=== PATIENT | female | born 1930 | race Caucasian/White ===

== ENCOUNTER 2017-04-15 12:38 | Outpatient (RCR) | payer MEDICARE, BC ==
[~2017-04-15 12:38] MED LIST: ACE3 PO; ACE325 PO; AMOX-559 PO; ASPI-1471 PO; AUG875 PO; BACDS PO; BP MED; CHOL10005 PO; CHOL100062 PO; CYCL-277 PO; CYCL7.5T21 PO; DOC100 PO; DOXY-179 PO; FURO-45 PO; GABA-547 PO; GUALA600 PO; LETPT PO; LEVO-85 PO; LOR5/325 PO; MAGN200T6 PO; MECL-111 PO; METR-160 PO; NITR-105 PO; OMEP-153 PO; OND4 PO; OXYGEN INH; OXYGENHOME INH; PAN20 PO; POTA-23 PO; PRO25 PO; REFLUX MED; SPIR25TA78 PO; [UNRECOGNIZED DRUG - CODE] PO; [UNRECOGNIZED DRUG - CODE] PO
[2017-04-15 12:53] VITALS: BP 98/78
[2017-04-15 13:05] LABS: PLATELET COUNT, AUTOMATED 219 K/uL (150-450)
== END 2017-04-22 09:52 | disposition home or self-care (01) ==
LOC: SPU 12:38
PROVIDERS: ATTEND Radiology Radiation Oncology
DX: Z85.3 Personal history of malignant neoplasm of breast (principal); K21.9 Gastro-esophageal reflux disease without esophagitis; I10 Essential (primary) hypertension; Z92.3 Personal history of irradiation
CPT/HCPCS: 36415; 85025; G0463; 82040; 82247; 82310; 82374; 82435; 82565; 82947; 84075; 84132; 84155; 84295; 84450; 84460; 84520; 99212

== ENCOUNTER → 2017-04-29 | Outpatient (CLI) | payer MEDICARE, BC ==
--- NOTE | 2017-04-30 10:27 | RADIOLOGY IMAGING REPORT ---
FACILITY: [facility] - [place] PATIENT NAME: LULY WANG : [id number] MR: [id number] V: [id number] EXAM DATE: [id number] ORDERING PHYSICIAN: SKYLAR JUAREZ TECHNOLOGIST: Adriana Quintanilla PROCEDURE: MAMMOGRAM SCREENING LEFT UNILATERAL WITH CAD ASSISTED INTERPRETATION & 3D TOMOSYNTHESIS COMPARISON: Prior mammograms 04/21/16, 04/20/15, 04/19/14, 04/18/13 INDICATIONS: screening FINDINGS: Small amount of fibroglandular tissue is seen throughout the Left breasts. The parenchymal pattern has remained stable allowing for difference in mammographic technique & patient positioning. There is no evidence of malignant appearing mass, malignant appearing calcifications or other secondary sign of malignancy in the Left breast. DIAGNOSTIC CATEGORY 2--BENIGN FINDING. RECOMMENDATIONS: ROUTINE MAMMOGRAM AND CLINICAL EVALUATION. IMPRESSION: BIRADS 2: Benign finding No significant abnormality is seen Dictated by: Evon Anna M.D. on 04/29/2017 at 15:12 Transcribed by: BRO on 04/29/2017 at 16:21 Approved by: Evon Anna M.D. on 04/30/2017 at 10:26 [facility]
== END ==
LOC: MAMO 02:03
PROVIDERS: ATTEND Nurse Practitioner Family
DX: Z12.31 Encounter for screening mammogram for malignant neoplasm of breast (principal)
CPT/HCPCS: 77063; 77067

== ENCOUNTER 2017-08-14 05:50 | Emergency (ER) | payer MEDICARE, BC ==
--- NOTE | 2017-08-14 06:03 | ER Report ---
History and Physical Time Seen By MD: 06:02 Hx. of Stated Complaint: LEFT ARM NUMBNESS SINCE YESTERDAY. FEELS WOBBLY, THIS IS NORMAL THOUGH (TOM WEEKS MD) HPI/ROS CHIEF COMPLAINT: left arm numbness HISTORY OF PRESENT ILLNESS: This is an 87 year old female. She had numbness starting yesterday afternoon at about 1600 hours. She first noted that it was numb and felt like she could not grab things well, but the problem grabbing seemed to go away when she would concentrate. She has had no other numbness in the other extremities, or feelings of weakness. She is always off balance, and no more so than usual. She does have a headache, and she does not get headaches very often. She denies any new problems with vision, but has chronic macular degeneration. She denies fevers or chills. She has not had trouble swallowing or speaking. She has not noted any confusion. She has been getting muscle cramps in her legs, but this is common for her and not more frequently now. She has no chest pain, no shortness of breath. No problems with dysuria. She does go to the bathroom frequently, but that has not changed in the last few days. She has not been having any problems with bowels. She has no abdominal pain or nausea. No history of strokes. REVIEW OF SYSTEMS: As above. (TOM WEEKS MD) Allergies: Coded Allergies: Antihistamines - Alkylamine (Verified Allergy, Unknown, 08/14/17) "Antihistamines give me migraines" Home Meds Active Scripts Letrozole (FEMARA) 2.5 Mg Tab, 1 TAB PO DAILY, #90 TAB 3 Refills Prov:DAISY BRANHAM MD 07/22/17 Magnesium (MAGNESIUM) 200 Mg Tablet, 200 MG PO QDAY, #30 TAB Prov:DAISY BRANHAM MD 08/27/15 Aspirin (ASPIR 81) 81 Mg Tablet.dr, 81 MG PO QDAY, #30 TAB Prov:DAISY BRANHAM MD 08/23/15 Cholecalciferol (Vitamin D3) (VITAMIN D3) 1,000 Unit Tablet, 1000 TAB PO DAILY, #100 TAB 4 Refills Prov:JESUS GARCIA MD 04/18/14 Reported Medications Oxygen (OXYGEN) Inha, 2 L INH, L 10/26/14 Reviewed Nurses Notes: Yes (TOM WEEKS MD) Hx Smoking: Yes Smoking Status: Former Smoker Hx Substance Use Disorder: No Hx Alcohol Use: No (TOM WEEKS MD) Constitutional Vital Sign - Last 24 Hours 08/14/17 08/14/17 08/14/17 08/14/17 05:50 05:50 05:52 06:00 Temp 98.2 Pulse 98 Resp 18 B/P (MAP) 129/97 129/97 (108) 142/77 (98) Pulse Ox 96 O2 Delivery Nasal Cannula O2 Flow Rate 2.0 08/14/17 08/14/17 08/14/17 08/14/17 06:05 06:20 06:35 06:50 Pulse 94 94 89 Resp 16 20 28 Pulse Ox 95 08/14/17 08/14/17 08/14/17 08/14/17 07:00 07:05 07:30 08:22 Pulse 87 87 Resp 23 20 B/P (MAP) 102/57 (72) 128/75 (92) 08/14/17 08/14/17 08/14/17 08:30 08:35 08:40 Pulse 81 85 B/P (MAP) 136/113 (121) Pulse Ox 97 97 (JOSELINE DAIGLE MD) Physical Exam General Appearance: The patient is alert. No acute distress. Non-toxic in appearance. Eyes: Pupils are equal, round. Reactive to light. No pallor, injection or icterus. Extraocular movements are intact. No nystagmus. Visual taylor are equal by confrontation. ENT: Mucous membranes are moist. Normal oral mucosa. Posterior oropharynx is normal. Neck: Supple and non tender. No lymphadenopathy. Respiratory: Breathing easily and unlabored. Lungs are clear to auscultation. Cardiovascular: Regular rate and rhythm. No murmurs, gallops or rubs. Normal capillary refill. Trace edema bilateral ankles. No carotid bruits. Gastrointestinal: Abdomen is soft and non tender. Nondistended. Normal active bowel sounds. Neurological: Alert and oriented x3. Cranial nerve exam with eye exam as noted above. Normal facial sensation and motor function without droop or loss of nasolabial fold. Midline tongue with symmetric palate elevation. Normal shoulder shrug. Motor function without drift but the left arm is weaker throughout when testing strength in both arms at the same time. She has good strength when she can just focus on the left arm alone. The lower extremities have normal motor function. Sensory function is decreased throughout the left arm to pin prick and light touch and normal in the right arm. Both lower extremities have normal sensation. She has diminished reflexes throughout. She can do [id number] and [id number]. No aphasia or dysarthria. Skin: Warm and dry. No rashes. Musculoskeletal: Extremities are nontender to palpation. Full range of motion. No tenderness in palpation of the cervical, thoracic and lumbar spine. NIH Stroke Scale: 1, scored for diminished sensation in left arm. While she has weakness, she had no drift with the arm. DIFFERENTIAL DIAGNOSIS: After history and physical exam, differential diagnosis was considered for weakness and numbness of the left arm, now 14.5 hours now. No other focal deficits noted. ([facility],TOM Adamson MD) Medical Decision Making Data Points Result Diagram: 08/14/17 0638 08/14/17 0638 Laboratory Hematology Test 08/14/17 06:38 Red Blood Count 4.94 M/uL (4.17-5.56) Mean Corpuscular Volume 89.7 fL (80.0-96.0) Mean Corpuscular Hemoglobin 30.9 pg (26.0-33.0) Mean Corpuscular Hemoglobin Concent 34.4 g/dL (32.0-36.0) Red Cell Distribution Width 14.5 % (11.5-14.5) Mean Platelet Volume 8.1 fL (7.2-11.1) Neutrophils (%) (Auto) 73.4 % (39.4-72.5) Lymphocytes (%) (Auto) 14.2 % (17.6-49.6) Monocytes (%) (Auto) 10.0 % (4.1-12.4) Eosinophils (%) (Auto) 1.2 % (0.4-6.7) Basophils (%) (Auto) 1.2 % (0.3-1.4) Nucleated RBC Relative Count (auto) 0.0 /100WBC Neutrophils # (Auto) 6.0 K/uL (2.0-7.4) Lymphocytes # (Auto) 1.2 K/uL (1.3-3.6) Monocytes # (Auto) 0.8 K/uL (0.3-1.0) Eosinophils # (Auto) 0.1 K/uL (0.0-0.5) Basophils # (Auto) 0.1 K/uL (0.0-0.1) Nucleated RBC Absolute Count (auto) 0.00 K/uL Prothrombin Time 13.4 seconds (12.0-14.4) Prothromb Time International Ratio 1.01 Activated Partial Thromboplast Time 27 seconds (23-35) Sodium Level 138 mmol/L (137-145) Potassium Level 3.6 mmol/L (3.5-5.0) Chloride Level 102 mmol/L (98-107) Carbon Dioxide Level 26 mmol/L (22-31) Blood Urea Nitrogen 13 mg/dl (7-18) Creatinine 0.80 mg/dl (0.52-1.04) Glomerular Filtration Rate Calc > 60.0 Random Glucose 112 mg/dl (75-110) Calcium Level 9.1 mg/dl (8.4-10.2) Total Bilirubin 1.0 mg/dl (0.2-1.3) Aspartate Amino Transf (AST/SGOT) 28 U/L (0-35) Alanine Aminotransferase (ALT/SGPT) 28 U/L (0-56) Alkaline Phosphatase 83 U/L (0-126) Troponin I 0.072 ng/ml Total Protein 7.1 g/dl (6.3-8.2) Albumin 4.0 g/dl (3.5-5.0) Chemistry Test 08/14/17 06:38 White Blood Count 8.1 k/uL (4.5-11.0) Red Blood Count 4.94 M/uL (4.17-5.56) Hemoglobin 15.3 g/dL (12.0-16.0) Hematocrit 44.3 % (34.0-47.0) Mean Corpuscular Volume 89.7 fL (80.0-96.0) Mean Corpuscular Hemoglobin 30.9 pg (26.0-33.0) Mean Corpuscular Hemoglobin Concent 34.4 g/dL (32.0-36.0) Red Cell Distribution Width 14.5 % (11.5-14.5) Platelet Count 207 K/uL (150-450) Mean Platelet Volume 8.1 fL (7.2-11.1) Neutrophils (%) (Auto) 73.4 % (39.4-72.5) Lymphocytes (%) (Auto) 14.2 % (17.6-49.6) Monocytes (%) (Auto) 10.0 % (4.1-12.4) Eosinophils (%) (Auto) 1.2 % (0.4-6.7) Basophils (%) (Auto) 1.2 % (0.3-1.4) Nucleated RBC Relative Count (auto) 0.0 /100WBC Neutrophils # (Auto) 6.0 K/uL (2.0-7.4) Lymphocytes # (Auto) 1.2 K/uL (1.3-3.6) Monocytes # (Auto) 0.8 K/uL (0.3-1.0) Eosinophils # (Auto) 0.1 K/uL (0.0-0.5) Basophils # (Auto) 0.1 K/uL (0.0-0.1) Nucleated RBC Absolute Count (auto) 0.00 K/uL Prothrombin Time 13.4 seconds (12.0-14.4) Prothromb Time International Ratio 1.01 Activated Partial Thromboplast Time 27 seconds (23-35) Glomerular Filtration Rate Calc > 60.0 Calcium Level 9.1 mg/dl (8.4-10.2) Total Bilirubin 1.0 mg/dl (0.2-1.3) Aspartate Amino Transf (AST/SGOT) 28 U/L (0-35) Alanine Aminotransferase (ALT/SGPT) 28 U/L (0-56) Alkaline Phosphatase 83 U/L (0-126) Troponin I 0.072 ng/ml Total Protein 7.1 g/dl (6.3-8.2) Albumin 4.0 g/dl (3.5-5.0) Coagulation Test 08/14/17 06:38 Prothrombin Time 13.4 seconds Prothromb Time International Ratio 1.01 Activated Partial Thromboplast Time 27 seconds (JOSELINE DAIGLE MD) EKG/Imaging EKG Interpretation 12 lead EKG: Rhythm: normal sinus rhythm, rate 93 [place]: normal QRS: Slightly slowed R-wave progression in the septal leads, but I do not appreciate any other changes ST segments: No ST elevation or depression noted, strain pattern noted on V1 and V2 Imaging CT scan was unavailable (not operational), so we went right to MRI of the brain. (TOM WEEKS MD) Imaging FACILITY: [facility] PATIENT NAME: Tracy Clinton : 1930 MR: [id number] V: [id number] EXAM DATE: [id number] ORDERING PHYSICIAN: TOM WEEKS TECHNOLOGIST: Location: [facility] [place] Patient: Tracy Clinton : 1930 Visit/Account:[id number] Date of Sevice: 08/14/2017 MRI Brain with and without contrast Indication: Left arm weakness and numbness. Comparison: MR brain from 10/16/2016. Technique: Sagittal T1-weighted, axial FLAIR, T2-weighted T1-weighted, gradient echo, coronal FLAIR, axial diffusion weighted and ADC map images were obtained through the brain. Axial and coronal T1-weighted fat saturated postcontrast images were also obtained. A total of 15 mL IV MultiHance contrast was administered.. Findings: No evidence of mass, mass effect, or midline shift. No acute intracranial hemorrhage.. Unremarkable appearance of the corpus callosum. Normal posterior pituitary bright spot noted. There are multifocal punctate areas of subcortical and cortical restricted diffusion within the posterior right parietal and right occipital lobe seen best on images 12 through 18 of the diffusion weighted images consistent with multiple foci of peripheral ischemia. There is no acute intracranial hemorrhage identified or large territorial infarction. There are no areas of restricted diffusion within the left cerebral hemisphere. Overall mild global atrophy. There are also underlying moderate periventricular deep white matter chronic ischemic changes noted. No focal area of abnormal contrast enhancement. Normal flow voids cerebral vasculature. Moderate mucosal thickening right maxillary sinus as well as air-fluid level consistent with right maxillary sinusitis. Left maxillary sinus is patent as well as the visualized mastoid air cells, ethmoid air cells and frontal sinuses. Bilateral globes are intact. IMPRESSION: 1. Multifocal areas of punctate ischemia involving the right posterior parieto- occipital lobe as above with no large territorial infarction or intracranial hemorrhage. Results were discussed with Dr. Daigle at 08/14/2017 8:32 AM. Report Dictated By: Benjamin Sosa MD at 08/14/2017 8:21 AM Report E-Signed By: Benjamin Sosa MD at 08/14/2017 8:33 AM WSN:[id number] (JOSELINE DAIGLE MD) ED Course/Re-evaluation Clinical Indication for ER IV: IV Access Turned Over The care of the patient was turned over to Dr. Daigle. Tom Weeks M.D. I authorize my typed signature that I authenticated this report. (TOM WEEKS MD) ED Course 08/14/2017 8:59:12 am MRI is consistent with multiple emboli concerning for possible showering from vascular source. Patient remains stable. I discussed the case [facility] she is agreed to accept the patient for further workup and evaluation of possible embolic stroke. Patient understands disposition is agreed to transport at this time. Decision to Disposition Date: Aug 14, 2017 Decision to Disposition Time: 08:59 (JOSELINE DAIGLE MD) Depart Departure Latest Vital Signs Vital Signs Date Time Temp Pulse Resp B/P (MAP) Pulse Ox O2 Delivery O2 Flow Rate FiO2 08/14/17 08:40 85 97 08/14/17 08:30 136/113 (121) 08/14/17 07:05 20 08/14/17 05:50 2.0 08/14/17 05:50 98.2 Nasal Cannula (JOSELINE DAIGLE MD) Impression: Primary Impression: Stroke Condition: Condition Unchanged Disposition: XFER TO [facility] (to Dr Interiano at [facility]) Referrals: DAISY BRANHAM MD (PCP) Problem Qualifiers Primary Impression: Stroke CVA mechanism: embolism Precerebral and cerebral artery: unspecified cerebral artery Qualified Codes: I63.40 - Cerebral infarction due to embolism of unspecified cerebral artery TOM WEEKS MD Aug 14, 2017 06:02 OJSELINE DAIGLE MD Aug 14, 2017 08:47
--- NOTE | 2017-08-14 06:33 | EKG ---
FACILITY: [facility] PATIENT NAME: LULY WANG : [id number] MR: [id number] V: [id number] EXAM DATE: ORDERING PHYSICIAN: CHI WEEKS TECHNOLOGIST: RALPH Test Reason : ? STROKE Blood Pressure : / mmHG Vent. Rate : 093 BPM Atrial Rate : 093 BPM P-R Int : 202 ms QRS Dur : 088 ms QT Int : 388 ms P-R-T Axes : 060 -01 058 degrees QTc Int : 482 ms Normal sinus rhythm with 1st degree AV block Possible Anterior infarct , age undetermined No ST abnormalities Peaked T waves of unclear significance When compared with ECG of 27-APR-2012 08:24, T waves more pronounced in precordial leads Confirmed by JORDAN MCGHEE ([id number]) on 08/14/2017 7:30:10 AM Referred By: Confirmed By:JORDAN MCGHEE
[2017-08-14 06:52] LABS: PLATELET COUNT, AUTOMATED 207 K/uL (150-450)
[2017-08-14 07:01] LABS: INR 1.01
[2017-08-14] MEDS ORDERED: ACETAMINOPHEN 500 MG TAB PO ONE (07:10)
--- NOTE | 2017-08-14 07:35 | RADIOLOGY IMAGING REPORT ---
FACILITY: [facility] - [place], [place] PATIENT NAME: Tracy Clinton : 1930 MR: [id number] V: [id number] EXAM DATE: ORDERING PHYSICIAN: CHI WEEKS TECHNOLOGIST: Location: [facility] Patient: Tracy Clinton : 1930 Visit/Account:[id number] Date of Sevice: 08/14/2017 CHEST SINGLE AP 08/14/2017 06:19 hours. HISTORY: Possible stroke. COMPARISON: 05/09/2016 and studies dating to 01/20/2007. TECHNIQUE: Portable AP upright view of the chest. FINDINGS: Patient is rotated. Tubes/lines/hardware: None. Pulmonary: There is diffuse interstitial prominence, greatest peripherally, compatible with pulmonary fibrosis, stable. There is no pneumothorax or pleural effusion. Cardiomediastinal: Cardiac and mediastinal silhouettes are within normal limits. There is moderate ao rtic calcification. Bones/soft tissues: No acute osseous abnormality. The visible abdomen is normal. IMPRESSION: 1. Stable chest without acute process. Report Dictated By: Cristina Johnson at 08/14/2017 7:26 AM Report E-Signed By: Cristina Johnson at 08/14/2017 7:29 AM WSN:[id number]
[2017-08-14] MEDS ORDERED: GADOBENATE 529MG/1ML 15ML VIAL IVP ONE (07:46)
--- NOTE | 2017-08-14 08:38 | RADIOLOGY IMAGING REPORT ---
FACILITY: [facility] PATIENT NAME: Tracy Clinton : 1930 MR: [id number] V: [id number] EXAM DATE: ORDERING PHYSICIAN: CHI WEEKS TECHNOLOGIST: Location: [facility] - [place] Patient: Tracy Clinton : 1930 Visit/Account:[id number] Date of Sevice: 08/14/2017 MRI Brain with and without contrast Indication: Left arm weakness and numbness. Comparison: MR brain from 10/16/2016. Technique: Sagittal T1-weighted, axial FLAIR, T2-weighted T1-weighted, gradient echo, coronal FLAIR, axial diffusion weighted and ADC map images were obtained through the brain. Axial and coronal T1-we ighted fat saturated postcontrast images were also obtained. A total of 15 mL IV MultiHance contrast was administered.. Findings: No evidence of mass, mass effect, or midline shift. No acute intracranial hemorrhage.. Unremarkable a ppearance of the corpus callosum. Normal posterior pituitary bright spot noted. There are multifocal punctate areas of subcortical and cortical restricted diffusion within the poste rior right parietal and right occipital lobe seen best on images 12 through 18 of the diffusion weigh tal images consistent with multiple foci of peripheral ischemia. There is no acute intracranial hemo rrhage identified or large territorial infarction. There are no areas of restricted diffusion within the left cerebral hemisphere. Overall mild global atrophy. There are also underlying moderate periventricular deep white matter chronic ischemic changes noted. No focal area of abnormal contrast enhancement. Normal flow voids cerebral vasculature. Moderate mucosal thickening right maxillary sinus as well as air-fluid level consistent with right ma xillary sinusitis. Left maxillary sinus is patent as well as the visualized mastoid air cells, ethmo id air cells and frontal sinuses. Bilateral globes are intact. IMPRESSION: 1. Multifocal areas of punctate ischemia involving the right posterior parieto-occipital lobe as abo ve with no large territorial infarction or intracranial hemorrhage. Results were discussed with Dr. Daigle at 08/14/2017 8:32 AM. Report Dictated By: Benjamin Sosa MD at 08/14/2017 8:21 AM Report E-Signed By: Benjamin Sosa MD at 08/14/2017 8:33 AM WSN:[id number]
[2017-08-14 10:41] VITALS: BP 128/72
== END 2017-08-14 10:50 | disposition short-term general hospital (02) ==
LOC: ER 05:52
DX: I63.40 Cerebral infarction due to embolism of unspecified cerebral artery (principal); R53.1 Weakness
CPT/HCPCS: 36415; 70553; 71045; 84484; 85025; 85610; 85730; 93005; 99284; A9270; A9577; 82040; 82247; 82310; 82374; 82435; 82565; 82947; 84075; 84132; 84155; 84295; 84450; 84460; 84520

== ENCOUNTER → 2017-08-14 | Outpatient (CLI) | payer MEDICARE, BC | LOC: AMB 05:19 | PROVIDERS: ATTEND Nurse Practitioner | DX: R20.0 Anesthesia of skin (principal) | CPT/HCPCS: A0425; A0427 ==

== ENCOUNTER → 2017-08-14 | Outpatient (CLI) | payer MEDICARE, BC | LOC: AMB 10:43 | PROVIDERS: ATTEND Nurse Practitioner | DX: I63.9 Cerebral infarction, unspecified (principal) | CPT/HCPCS: A0425; A0426 ==

== ENCOUNTER 2017-08-28 07:05 | Inpatient (IN) | payer MEDICARE, BC ==
[~2017-08-28] VITALS: Ht 172.7 cm; Wt 86.7 kg
--- NOTE | 2017-08-28 07:10 | ER Report ---
History and Physical Time Seen By MD: 07:09 HPI/ROS CHIEF COMPLAINT: Rectal bleeding HISTORY OF PRESENT ILLNESS: Patient is an 87-year-old female who was recently transfer to [facility] on August 14 after suffering a minor stroke. She is currently on aspirin and Plavix. Today she states she felt as if she was going to have a bowel movement and instead passed bright red blood per rectum. Patient denies any abdominal pain. She denies any prior history of similar episodes. Patient denies any chest pain she denies shortness of breath. She denies any infectious type symptoms. Patient does have a prior history of breast cancer with mastectomy in 2012. She did receive radiation therapy upon her last visit in April 2017 she was considered cancer free. REVIEW OF SYSTEMS: Constitutional: No fever, no chills. Eyes: No discharge. ENT: No sore throat. Cardiovascular: No chest pain, no palpitations. Respiratory: No cough, no shortness of breath. Gastrointestinal: No abdominal pain, no vomiting. Rectal bleeding Genitourinary: No hematuria. Musculoskeletal: No back pain. Skin: No rashes. Neurological: No headache. Allergies: Coded Allergies: Antihistamines - Alkylamine (Verified Allergy, Unknown, 08/28/17) "Antihistamines give me migraines" Home Meds Active Scripts Letrozole (FEMARA) 2.5 Mg Tab, 1 TAB PO DAILY, #90 TAB 3 Refills Prov:DAISY BRANHAM MD 07/22/17 Magnesium (MAGNESIUM) 200 Mg Tablet, 200 MG PO QDAY, #30 TAB Prov:DAISY BRANHAM MD 08/27/15 Aspirin (ASPIR 81) 81 Mg Tablet.dr, 81 MG PO QDAY, #30 TAB Prov:DAISY BRANHAM MD 08/23/15 Cholecalciferol (Vitamin D3) (VITAMIN D3) 1,000 Unit Tablet, 1000 TAB PO DAILY, #100 TAB 4 Refills Prov:JESUS GARCIA MD 04/18/14 Reported Medications Polyethylene Glycol 3350 (Glycolax) 17 Gram/Dose Powder 08/28/17 Letrozole (LETROZOLE) 2.5 Mg Tablet, 2.5 MG PO 08/28/17 Clopidogrel Bisulfate (CLOPIDOGREL) 75 Mg Tablet, 1 TAB PO QDAY, TAB 08/28/17 Atorvastatin Calcium (LIPITOR) 10 Mg Tablet, 1 TAB PO QDAY, TAB 08/28/17 Oxygen (OXYGEN) Inha, 2 L INH, L 10/26/14 Discontinued Reported Medications Oxygen (OXYGEN) Inha, 2 L INH, L 08/28/17 [magnesium] No Conflict Check 08/28/17 Past Medical/Surgical History Past medical history for trigeminal neuralgia, hypertension, diverticulitis, breast cancer status post right mastectomy in 2013 history of cholecystectomy, history of cataract extraction bilateral, tonsillectomy Hx Smoking: Yes Smoking Status: Former Smoker Hx Substance Use Disorder: No Hx Alcohol Use: No Constitutional Vital Sign - Last 24 Hours 08/28/17 08/28/17 08/28/17 08/28/17 07:05 07:09 07:11 07:20 Temp 98.1 Pulse ??? 95 81 Resp 16 B/P (MAP) 100/84 100/54 (69) Pulse Ox 86 93 O2 Delivery Room Air 08/28/17 08/28/17 08/28/17 08/28/17 07:33 07:35 07:50 08:05 Pulse 83 ? Pulse Ox 94 95 O2 Flow Rate 2.0 08/28/17 08/28/17 08/28/17 08:50 08:58 09:00 Pulse 72 B/P (MAP) 101/87 (92) 124/73 (90) Pulse Ox 96 Physical Exam General/Constitutional: Patient is awake, alert, nontoxic and in no acute respiratory distress. Head: Normocephalic and atraumatic. Eyes: Conjunctival clear, Pupils are equal and reactive to light. Extraocular muscles are intact and symmetrical. Sclera are clear and anicteric. Ears:External canals are clear. Tympanic membranes are clear with normal landmarks and light reflex. Nares: No rhinorrhea or bleeding. Turbinates are pink and moist. Oropharyngeal: Mucous membranes are moist. Neck: Supple, no adenopathy. Cardiovascular: Heart is regular rate and rhythm without audible murmurs, rubs or gallops. Pulmonary: Lungs are clear to auscultation bilaterally. There are no wheezes, rales, or rhonchi. Chest rise is symmetrical Abdomen: Soft, nontender, no guarding or peritoneal signs. Extremities: No gross deformities, No peripheral cyanosis. Able to move all 4 extremities. Neuro: Alert and oriented X3, Skin: No rashes, skin is warm dry and well perfused. Medical Decision Making Data Points Result Diagram: 08/28/17 0738 08/28/17 0738 Laboratory Hematology Test 08/28/17 07:38 08/28/17 07:43 08/28/17 09:32 Red Blood Count 4.47 M/uL (4.17-5.56) Mean Corpuscular Volume 90.7 fL (80.0-96.0) Mean Corpuscular Hemoglobin 31.2 pg (26.0-33.0) Mean Corpuscular Hemoglobin Concent 34.3 g/dL (32.0-36.0) Red Cell Distribution Width 15.1 % (11.5-14.5) Mean Platelet Volume 8.5 fL (7.2-11.1) Neutrophils (%) (Auto) 61.4 % (39.4-72.5) Lymphocytes (%) (Auto) 22.7 % (17.6-49.6) Monocytes (%) (Auto) 11.6 % (4.1-12.4) Eosinophils (%) (Auto) 3.1 % (0.4-6.7) Basophils (%) (Auto) 1.2 % (0.3-1.4) Nucleated RBC Relative Count (auto) 0.0 /100WBC Neutrophils # (Auto) 4.2 K/uL (2.0-7.4) Lymphocytes # (Auto) 1.5 K/uL (1.3-3.6) Monocytes # (Auto) 0.8 K/uL (0.3-1.0) Eosinophils # (Auto) 0.2 K/uL (0.0-0.5) Basophils # (Auto) 0.1 K/uL (0.0-0.1) Nucleated RBC Absolute Count (auto) 0.00 K/uL Peripheral Blood Smear No Y/N Prothrombin Time 13.9 seconds (12.0-14.4) Prothromb Time International Ratio 1.06 Activated Partial Thromboplast Time 24 seconds (23-35) Sodium Level 142 mmol/L (137-145) Potassium Level 3.6 mmol/L (3.5-5.0) Chloride Level 108 mmol/L (98-107) Carbon Dioxide Level 26 mmol/L (22-31) Blood Urea Nitrogen 16 mg/dl (7-18) Creatinine 0.80 mg/dl (0.52-1.04) Glomerular Filtration Rate Calc > 60.0 Random Glucose 123 mg/dl (75-110) Calcium Level 9.0 mg/dl (8.4-10.2) Total Bilirubin 0.8 mg/dl (0.2-1.3) Aspartate Amino Transf (AST/SGOT) 25 U/L (0-35) Alanine Aminotransferase (ALT/SGPT) 36 U/L (0-56) Alkaline Phosphatase 65 U/L (0-126) Total Protein 6.2 g/dl (6.3-8.2) Albumin 3.6 g/dl (3.5-5.0) Lipase 153 U/L (23-300) Helicobacter pylori IgG Antibody Negative (NEGATIVE) Stool Occult Blood (IFOB) Positive (NEGATIVE) Chemistry Test 08/28/17 07:38 08/28/17 07:43 08/28/17 09:32 White Blood Count 6.8 k/uL (4.5-11.0) Red Blood Count 4.47 M/uL (4.17-5.56) Hemoglobin 13.9 g/dL (12.0-16.0) Hematocrit 40.5 % (34.0-47.0) Mean Corpuscular Volume 90.7 fL (80.0-96.0) Mean Corpuscular Hemoglobin 31.2 pg (26.0-33.0) Mean Corpuscular Hemoglobin Concent 34.3 g/dL (32.0-36.0) Red Cell Distribution Width 15.1 % (11.5-14.5) Platelet Count 200 K/uL (150-450) Mean Platelet Volume 8.5 fL (7.2-11.1) Neutrophils (%) (Auto) 61.4 % (39.4-72.5) Lymphocytes (%) (Auto) 22.7 % (17.6-49.6) Monocytes (%) (Auto) 11.6 % (4.1-12.4) Eosinophils (%) (Auto) 3.1 % (0.4-6.7) Basophils (%) (Auto) 1.2 % (0.3-1.4) Nucleated RBC Relative Count (auto) 0.0 /100WBC Neutrophils # (Auto) 4.2 K/uL (2.0-7.4) Lymphocytes # (Auto) 1.5 K/uL (1.3-3.6) Monocytes # (Auto) 0.8 K/uL (0.3-1.0) Eosinophils # (Auto) 0.2 K/uL (0.0-0.5) Basophils # (Auto) 0.1 K/uL (0.0-0.1) Nucleated RBC Absolute Count (auto) 0.00 K/uL Peripheral Blood Smear No Y/N Prothrombin Time 13.9 seconds (12.0-14.4) Prothromb Time International Ratio 1.06 Activated Partial Thromboplast Time 24 seconds (23-35) Glomerular Filtration Rate Calc > 60.0 Calcium Level 9.0 mg/dl (8.4-10.2) Total Bilirubin 0.8 mg/dl (0.2-1.3) Aspartate Amino Transf (AST/SGOT) 25 U/L (0-35) Alanine Aminotransferase (ALT/SGPT) 36 U/L (0-56) Alkaline Phosphatase 65 U/L (0-126) Total Protein 6.2 g/dl (6.3-8.2) Albumin 3.6 g/dl (3.5-5.0) Lipase 153 U/L (23-300) Helicobacter pylori IgG Antibody Negative (NEGATIVE) Stool Occult Blood (IFOB) Positive (NEGATIVE) Coagulation Test 08/28/17 07:38 Prothrombin Time 13.9 seconds Prothromb Time International Ratio 1.06 Activated Partial Thromboplast Time 24 seconds Urinalysis Test 08/28/17 09:32 ED Course/Re-evaluation ED Course 08/28/2017 7:46:40 am patient with bright red blood per rectum. Plan at this time will be abdominal workup including type and screen. Decision to Disposition Date: Aug 28, 2017 Decision to Disposition Time: 09:04 Depart Departure Latest Vital Signs Vital Signs Date Time Temp Pulse Resp B/P (MAP) Pulse Ox O2 Delivery O2 Flow Rate FiO2 08/28/17 09:00 124/73 (90) 08/28/17 08:50 72 96 08/28/17 07:33 2.0 08/28/17 07:09 98.1 16 Room Air Impression: Primary Impression: GI bleed Condition: Improved Disposition: Admitted from ER (to Michelle Torres) Referrals: DAISY BRANHAM MD (PCP) Problem Qualifiers Primary Impression: GI bleed GI bleed type/associated pathology: diverticulosis Qualified Codes: K57.91 - Diverticulosis of intestine, part unspecified, without perforation or abscess with bleeding JOSELINE CASTILLO MD Aug 28, 2017 07:10
[2017-08-28] MEDS ORDERED: NS(*) 0.9% 1000 ML BAG 1,000 ML IV ONE (07:22)
[2017-08-28] MEDS ORDERED: LETR2.5T4 PO (07:26)
[2017-08-28] MEDS ORDERED: magnesium (07:26)
[2017-08-28] MEDS ORDERED: POLY119P37 (07:26)
[2017-08-28] MEDS ORDERED: ATOR10TA24 PO (07:26)
[2017-08-28] MEDS ORDERED: OXYGENHOME INH (07:26)
[2017-08-28] MEDS ORDERED: CLOP75TA PO (07:26)
--- NOTE | 2017-08-28 07:36 | EKG ---
FACILITY: [facility] [place] PATIENT NAME: LULY WANG : [id number] MR: [id number] V: [id number] EXAM DATE: ORDERING PHYSICIAN: JOSELINE CASTILLO TECHNOLOGIST: DEMETRIO Test Reason : GI BLEED Blood Pressure : / mmHG Vent. Rate : 080 BPM Atrial Rate : 080 BPM P-R Int : 154 ms QRS Dur : 088 ms QT Int : 412 ms P-R-T Axes : 000 -07 041 degrees QTc Int : 475 ms Sinus rhythm Left axis Nonspecific ST findings Relatively tall T waves Confirmed by JUSTA GIBBS ([id number]) on 08/28/2017 4:17:52 PM Referred By: JONATHAN Confirmed By:JUSTA GIBBS
[2017-08-28] MEDS ORDERED: NS 0.9% 25 ML BAG 0 ML ONE (07:39)
[2017-08-28] MEDS ORDERED: IOPAMIDOL 76% 100 ML INFUS BTL 0 ML ONE (07:39)
[2017-08-28 07:49] LABS: PLATELET COUNT, AUTOMATED 200 K/uL (150-450)
[2017-08-28] MEDS ORDERED: IOPAMIDOL 76% 100 ML INFUS BTL 100 ML ONE (07:54)
[2017-08-28 08:00] LABS: INR 1.06
--- NOTE | 2017-08-28 09:02 | RADIOLOGY IMAGING REPORT ---
FACILITY: [facility] [place] PATIENT NAME: Tracy Clinton : 1930 MR: [id number] V: [id number] EXAM DATE: ORDERING PHYSICIAN: JOSELINE CASTILLO TECHNOLOGIST: Location: [facility] Patient: Tracy Clinton : 1930 Visit/Account:[id number] Date of Sevice: 08/28/2017 ABDOMEN/PELVIS WITH CONTRAST Provided history: gi bleed Additional pertinent history: none TECHNIQUE: Spiral scan was obtained from the lower chest through the symphysis with intravenous contr ast Contrast dose: 100 mL Isovue 370 intravenously. Source images were reformatted in the coronal and sagittal planes. Additional series performed today: none One of the following dose optimization techniques was utilized in the performance of this exam: Autom ated exposure control; adjustment of the mA and/or kV according to the patient's size; or use of an i terative reconstruction technique. Specific details can be referenced in the facility's radiology CT exam operational policy. COMPARISON STUDIES: 01/02/15 FINDINGS: Lower chest: There are coarse reticular linear densities in both lung bases with superimposed honeyco mbing and traction bronchiectasis in the subpleural margin, highly consistent with UIP. Superimposed are multiple bullae. There is extensive calcification of the mitral valve annulus. Left atrium appears mildly prominent. Moderate-sized hiatal hernia. Liver/biliary: Nodular hyperenhancement centrally in segment 3 of the left lobe consistent with a antwon ign hemangioma, unchanged from prior. Gallbladder absent. Bile ducts normal. Pancreas: Negative Spleen: Negative Adrenal glands: Negative Kidneys / ureters / bladder / genitourinary / retroperitoneum: Benign exophytic cyst upper pole right kidney measures 6.1 cm, stable. No suspect renal cortical lesions. No hydronephrosis. Bladder neg ative. Uterus and adnexa negative. No free fluid. Bowel / peritoneum / mesenteries: Moderate diverticulosis of the descending and sigmoid colon. Hyper density projects in the lumen of the sigmoid that may reflect active extravasation of injected IV con trast, probably bleeding from a diverticulum. No other source of potential GI bleed is identified on this exam. Vessels: Moderate plaque, somewhat more than is typical for age. Lymph nodes: negative Body wall: Small noninflamed fat-containing subumbilical hernia. No bowel herniation. Bones: negative IMPRESSION: 1. Advanced diverticulosis of the descending sigmoid colon. Hyperdensity in the lumen of the sigmoi d raises concern for active GI bleeding from a diverticulum. 2. Pattern of changes described above in the lung bases will be consistent with UIP pattern. Correl ate for evidence of IPF clinically. 3. Additional stable chronic benign findings are discussed above. Report called to JOSELINE CASTILLO, 08/28/2017 8:45 AM. Report Dictated By: Stefano Solitario MD at 08/28/2017 8:45 AM Report E-Signed By: Stefano Solitario MD at 08/28/2017 8:59 AM [id number]
[2017-08-28] MEDS ORDERED: FLUSH 10 ML SYR IVP PRN (09:05)
[2017-08-28] MEDS ORDERED: ONDANSETRON 4 MG/2 ML VIAL IVP PRN (09:05)
[2017-08-28] MEDS ORDERED: DESMOPRESSIN ACET IVPB ONE (09:30)
[2017-08-28] MEDS ORDERED: NS 0.9% IVPB ONE (09:30)
[2017-08-28 10:58] VITALS: BP 105/70
[2017-08-28] MEDS: NS(*) 0.9% 1000 ML BAG 1,000 ML IV PRN ×2 (11:32→22:39)
--- NOTE | 2017-08-28 12:33 | Hospitalist Consultation ---
History of Present Illness Requesting Physician Dr. Torres Reason for Consult Recent CVA Chief Complaint Bloody stool History of Present Illness 87yo female with PMHx significant for breast cancer, recent CVA with LUE paresthesias/clumsiness on antiplatelet therapy. She has been admitted for rectal bleeding. She reports having what she thought was a diarrheal stool early today, but noted it to be "nothing but blood....bright red". She denied any abdominal pain/cramping. No dark red/maroon or black stools. She recently returned home after a stay at [facility] following CVA. She states her symptoms resolved fairly quickly and she did very well with PT/ OT. She states she has not had any recurrent paresthesias, weakness, clumsiness in her extremities. She denies any palpitations. She denies any CP/SOB. She does currently have monitoring engineer on and is scheduled to follow up with cardiology in near future. History Problems: (1) Breast cancer Status: Chronic (2) Trigeminal neuralgia Status: Chronic (3) Pulmonary fibrosis Status: Chronic (4) On home oxygen therapy Status: Chronic (5) Stroke Status: Chronic (6) GERD (gastroesophageal reflux disease) Status: Chronic (7) Hypertension, benign Status: Chronic (8) Osteopenia Status: Chronic Home Meds Active Scripts Letrozole (FEMARA) 2.5 Mg Tab, 1 TAB PO DAILY, #90 TAB 3 Refills Prov:DAISY BRANHAM MD 07/22/17 Magnesium (MAGNESIUM) 200 Mg Tablet, 200 MG PO QDAY, #30 TAB Prov:DAISY BRANHAM MD 08/27/15 Aspirin (ASPIR 81) 81 Mg Tablet.dr, 81 MG PO QDAY, #30 TAB Prov:DAISY BRANHAM MD 08/23/15 Cholecalciferol (Vitamin D3) (VITAMIN D3) 1,000 Unit Tablet, 1000 TAB PO DAILY, #100 TAB 4 Refills Prov:JESUS GARCIA MD 04/18/14 Reported Medications Clopidogrel Bisulfate (CLOPIDOGREL) 75 Mg Tablet, 1 TAB PO QDAY, TAB 08/28/17 Atorvastatin Calcium (LIPITOR) 10 Mg Tablet, 1 TAB PO QDAY, TAB 08/28/17 Oxygen (OXYGEN) Inha, 2 L INH, L 10/26/14 Discontinued Reported Medications Polyethylene Glycol 3350 (Glycolax) 17 Gram/Dose Powder 08/28/17 Oxygen (OXYGEN) Inha, 2 L INH, L 08/28/17 [magnesium] No Conflict Check 08/28/17 Letrozole (LETROZOLE) 2.5 Mg Tablet, 2.5 MG PO 08/28/17 Allergies: Coded Allergies: Antihistamines - Alkylamine (Verified Allergy, Unknown, 08/28/17) "Antihistamines give me migraines" Patient History: Cervical cancer MOTHER, , Age:79 FH: cerebral aneurysm BROTHER OR SISTER, , Age:Unknown FH: myocardial infarction FATHER (Myocardial Infarction), , Age:77 Hx Smoking: Yes Smoking Status: Former Smoker Caffeine/Cups Per Day: NONE Hx Alcohol Use: No Hx Substance Use Disorder: No Social Drug Use: Never Review of Systems Neurological: No Confusion, No Weakness Cardiovascular: No Chest Pain, No Palpitations Respiratory: No Shortness of Breath Gastrointestinal: Hematochezia Exam Vital Signs Vital Signs Date Time Temp Pulse Resp B/P (MAP) Pulse Ox O2 Delivery O2 Flow Rate FiO2 08/28/17 10:58 97.7 82 105/70 (82) 97 Nasal Cannula 2.0 08/28/17 07:09 16 General Appearance: Alert, Awake Neuro: No Gross deficits Eyes: PERRLA ENT: Oropharynx Clear (dentures) Cardiovascular: Regular Rate and Rhythm (with systolic murmur) Respiratory: Clear to Auscultation GI: Abd Soft and Non-Tender Extremities: Warm, Perfused Integumentary: Skin Intact without Lesion / Mass Psych: Alert & Oriented X3 Medical Decision Making Data Points Result Diagram: 08/28/17 0738 08/28/17 0738 EKG / Imaging Imaging PATIENT NAME: Tracy Clinton : 1930 MR: [id number] V: [id number] EXAM DATE: [id number] ORDERING PHYSICIAN: JOSELINE CASTILLO TECHNOLOGIST: Location: [facility] [place] Patient: Tracy Clinton : 1930 Visit/Account:[id number] Date of Sevice: 08/28/2017 ABDOMEN/PELVIS WITH CONTRAST Provided history: gi bleed Additional pertinent history: none TECHNIQUE: Spiral scan was obtained from the lower chest through the symphysis with intravenous contrast Contrast dose: 100 mL Isovue 370 intravenously. Source images were reformatted in the coronal and sagittal planes. Additional series performed today: none One of the following dose optimization techniques was utilized in the performance of this exam: Automated exposure control; adjustment of the mA and/ or kV according to the patient's size; or use of an iterative reconstruction technique. Specific details can be referenced in the facility's radiology CT exam operational policy. COMPARISON STUDIES: 01/02/15 FINDINGS: Lower chest: There are coarse reticular linear densities in both lung bases with superimposed honeycombing and traction bronchiectasis in the subpleural margin, highly consistent with UIP. Superimposed are multiple bullae. There is extensive calcification of the mitral valve annulus. Left atrium appears mildly prominent. Moderate-sized hiatal hernia. Liver/biliary: Nodular hyperenhancement centrally in segment 3 of the left lobe consistent with a benign hemangioma, unchanged from prior. Gallbladder absent. Bile ducts normal. Pancreas: Negative Spleen: Negative Adrenal glands: Negative Kidneys / ureters / bladder / genitourinary / retroperitoneum: Benign exophytic cyst upper pole right kidney measures 6.1 cm, stable. No suspect renal cortical lesions. No hydronephrosis. Bladder negative. Uterus and adnexa negative. No free fluid. Bowel / peritoneum / mesenteries: Moderate diverticulosis of the descending and sigmoid colon. Hyperdensity projects in the lumen of the sigmoid that may reflect active extravasation of injected IV contrast, probably bleeding from a diverticulum. No other source of potential GI bleed is identified on this exam. Vessels: Moderate plaque, somewhat more than is typical for age. Lymph nodes: negative Body wall: Small noninflamed fat-containing subumbilical hernia. No bowel herniation. Bones: negative IMPRESSION: 1. Advanced diverticulosis of the descending sigmoid colon. Hyperdensity in the lumen of the sigmoid raises concern for active GI bleeding from a diverticulum. 2. Pattern of changes described above in the lung bases will be consistent with UIP pattern. Correlate for evidence of IPF clinically. 3. Additional stable chronic benign findings are discussed above. Report called to JOSELINE CASTILLO, 08/28/2017 8:45 AM. Report Dictated By: Stefano Solitario MD at 08/28/2017 8:45 AM Report E-Signed By: Stefano Solitario MD at 08/28/2017 8:59 AM [id number] Assessment and Plan Problems: (1) GI bleed Status: Acute Assessment & Plan: As per Dr. Torres. It sounds like she may have diverticular bleeding. Will hold her aspirin and Plavix for now. May need to consider restarting in near future if possible. Will discuss with Dr. Torres. (2) Stroke Status: Chronic Assessment & Plan: She has been managed with aspirin, Plavix, statin. Will hold her antiplatelet therapy for now and continue statin. Will place on telemetry while she is here to see if she has any dysrhythmias. (3) Pulmonary fibrosis Status: Chronic Assessment & Plan: She is on chronic oxygen therapy. Venous Thromboembolism Antithrombotics Is Pt On Any Antithrombotics?: No Prophylaxis Tx Contraindicated Pharmacological Contraindicati: Active Bleeding Exam Sepsis Risk: No Definite Risk Problem Qualifiers (1) GI bleed: GI bleed type/associated pathology: diverticulosis Qualified Codes: K57.91 - Diverticulosis of intestine, part unspecified, without perforation or abscess with bleeding JUSTA GIBBS MD Aug 28, 2017 12:33
[2017-08-28] MEDS ORDERED: PEG (High)/E-LYTE SOLN 4000 ML PO ONE (13:00)
[2017-08-28 15:25] VITALS: BP 97/71
--- NOTE | 2017-08-28 18:14 | Gen Surgery History & Physical ---
History of Present Illness Chief Complaint BRBPR History of Present Illness 87yo female presents to our ER with 4 episodes of BRBPR today. She estimates a little more than a tablespoon of blood each time. No lightheadedness, no palpitations, no abdominal pain or cramps. She came in to our ER over a week ago with suspected stroke and she was transferred to [facility] and was started on Plavix and ASA 325 at that time. Her stroke symptoms involved only numbness in her left hand and this resolved after 30 minutes. She now has no neurologic symptoms. No previous h/o GI bleeding. Last colonoscopy was 10 years ago and was reportedly normal. CT scan in ER with IV contrast is suspicious for diverticular bleed based on blush in sigmoid colon. History Problems: (1) Pulmonary fibrosis Status: Chronic (2) Trigeminal neuralgia Status: Chronic (3) Breast cancer Status: Chronic (4) Stroke Status: Chronic (5) On home oxygen therapy Status: Chronic (6) GERD (gastroesophageal reflux disease) Status: Chronic (7) Hypertension, benign Status: Chronic (8) Osteopenia Status: Chronic Home Meds Active Scripts Letrozole (FEMARA) 2.5 Mg Tab, 1 TAB PO DAILY, #90 TAB 3 Refills Prov:DAISY BRANHAM MD 07/22/17 Magnesium (MAGNESIUM) 200 Mg Tablet, 200 MG PO QDAY, #30 TAB Prov:DAISY BRANHAM MD 08/27/15 Aspirin (ASPIR 81) 81 Mg Tablet.dr, 81 MG PO QDAY, #30 TAB Prov:DAISY BRANHAM MD 08/23/15 Cholecalciferol (Vitamin D3) (VITAMIN D3) 1,000 Unit Tablet, 1000 TAB PO DAILY, #100 TAB 4 Refills Prov:JESUS GARCIA MD 04/18/14 Reported Medications Clopidogrel Bisulfate (CLOPIDOGREL) 75 Mg Tablet, 1 TAB PO QDAY, TAB 08/28/17 Atorvastatin Calcium (LIPITOR) 10 Mg Tablet, 1 TAB PO QDAY, TAB 08/28/17 Oxygen (OXYGEN) Inha, 2 L INH, L 10/26/14 Discontinued Reported Medications Polyethylene Glycol 3350 (Glycolax) 17 Gram/Dose Powder 08/28/17 Oxygen (OXYGEN) Inha, 2 L INH, L 08/28/17 [magnesium] No Conflict Check 08/28/17 Letrozole (LETROZOLE) 2.5 Mg Tablet, 2.5 MG PO 08/28/17 Allergies: Coded Allergies: Antihistamines - Alkylamine (Verified Allergy, Unknown, 08/28/17) "Antihistamines give me migraines" Patient History: Cervical cancer MOTHER, , Age:79 FH: cerebral aneurysm BROTHER OR SISTER, , Age:Unknown FH: myocardial infarction FATHER (Myocardial Infarction), , Age:77 Review of Systems All Systems Reviewed/Normal: Yes, Except as Noted Exam General Appearance: Alert, Awake, No Acute Distress, Afebrile Neuro: No Gross deficits Eyes: PERRLA GI: Abd Soft and Non-Tender Extremities: Warm, Perfused Medical Decision Making Data Points Result Diagram: 08/28/17 1522 08/28/17 0738 Assessment and Plan Problems: (1) GI (gastrointestinal bleed) Status: Acute Assessment & Plan: 08/28/17: Blood per rectum is bright red without significant volumes c/w distal GI bleed from colon or rectum. Suspect diverticular bleed from sigmoid colon based on CT scan. She is admitted and will follow her H/H and vital signs. She has been very stable and her Hb dropped from 13 to 12 so will need to follow this but not a huge drop so far. She is completing a bowel prep and so she is on clear diet but will make her NPO at midnight and plan on colonoscopy in the morning. I have explained this plan with her in great detail and I have explained colonoscopy in great detail as well as the alternatives and risks. She seem to understand this discussion and the plan she is agreeable with proceeding with this plan including colonoscopy. Will avoid blood thinners and antiplatelet medications. Will need to restart at least ASA and possible plavix in a week or two. Risks of recurrent CVA explained to her without antiplatelet therapy but I've explained that her more immediate threat is her GI hemorrhage. She seems to understand this and is in agreement to hold all blood thinners/antiplatelet medications until it is clear her GI bleeding has stopped. Will ask Hospitalist to consult to help manage her chronic comorbidities. Condition Stable. Time Spent: < 30 min Venous Thromboembolism Antithrombotics Is Pt On Any Antithrombotics?: No Problem Qualifiers (1) GI (gastrointestinal bleed): GI bleed type/associated pathology: unspecified gastrointestinal hemorrhage type Qualified Codes: K92.2 - Gastrointestinal hemorrhage, unspecified KARLA BAJWA MD Aug 28, 2017 18:14
[2017-08-28 23:26] VITALS: BP 105/56
[2017-08-29] VITALS (7 sets, daily range): BP systolic 83–109; BP diastolic 53–95; Ht 172.7 cm; Wt 86.7 kg
[2017-08-29 06:53] LABS: PLATELET COUNT, AUTOMATED 171 K/uL (150-450)
[2017-08-29] MEDS ORDERED: PROPOFOL EMUL(*) 10MG/ML 20 ML 40 ML ONE (08:17)
--- NOTE | 2017-08-29 08:58 | General Surgery Progress Note ---
Subjective Progress Notes Subjective No complaints. No abdominal pain. No further blood per rectum. Doesn't sound like her stool is completely liquid this morning. Physical Exam Vital Signs Date Time Temp Pulse Resp B/P (MAP) Pulse Ox O2 Delivery O2 Flow Rate FiO2 08/29/17 04:00 74 08/29/17 03:21 98.2 105/63 (77) Nasal Cannula 3.0 08/28/17 23:26 19 92 General Appearance: Alert, Awake, No Acute Distress, Afebrile GI: Soft and Non-Tender Extremities: Warm, Perfused Result Diagram: 08/29/1762308/29/17623 Assessment and Plan Problems: (1) GI (gastrointestinal bleed) Status: Acute Assessment & Plan: 08/28/17: Blood per rectum is bright red without significant volumes c/w distal GI bleed from colon or rectum. Suspect diverticular bleed from sigmoid colon based on CT scan. She is admitted and will follow her H/H and vital signs. She has been very stable and her Hb dropped from 13 to 12 so will need to follow this but not a huge drop so far. She is completing a bowel prep and so she is on clear diet but will make her NPO at midnight and plan on colonoscopy in the morning. I have explained this plan with her in great detail and I have explained colonoscopy in great detail as well as the alternatives and risks. She seem to understand this discussion and the plan she is agreeable with proceeding with this plan including colonoscopy. Will avoid blood thinners and antiplatelet medications. Will need to restart at least ASA and possible plavix in a week or two. Risks of recurrent CVA explained to her without antiplatelet therapy but I've explained that her more immediate threat is her GI hemorrhage. She seems to understand this and is in agreement to hold all blood thinners/antiplatelet medications until it is clear her GI bleeding has stopped. Will ask Hospitalist to consult to help manage her chronic comorbidities. 08/29/17: Doing well. H/H down a little but could be hemodilution. Will proceed with colonoscopy this morning. Pt and daughter agreeable with this plan. Condition Stable. Time Spent: < 30 min Exam Sepsis Risk: No Definite Risk Problem Qualifiers (1) GI (gastrointestinal bleed): GI bleed type/associated pathology: unspecified gastrointestinal hemorrhage type Qualified Codes: K92.2 - Gastrointestinal hemorrhage, unspecified KARLA ABJWA MD Aug 29, 2017 08:58
[2017-08-29] MEDS ORDERED: PANTOPRAZOLE SOD 40 MG IV VIAL IVP SCH (09:00)
[2017-08-29] MEDS ORDERED: ONDANSETRON 4 MG/2 ML VIAL ONE (09:00)
[2017-08-29] MEDS: LETROZOLE 2.5 MG TAB PO SCH (09:00)
[2017-08-29] MEDS: ATORVASTATIN 10 MG TAB PO SCH (09:00)
[2017-08-29] MEDS ORDERED: ePHEDrine 25 MG/5 ML DISP.SYR IVP ONE (09:42)
[2017-08-29] MEDS ORDERED: ALBUTEROL/IPRATROPIUM 3 ML NEB NEB ONE (09:55)
[2017-08-29] MEDS ORDERED: ALBUTEROL/IPRATROPIUM 3 ML NEB ONE (09:56)
[2017-08-29] MEDS ORDERED: NORMOSOL R SOLN(*) 1000 ML BAG 1,000 ML IV ONE (10:43)
--- NOTE | 2017-08-29 14:28 | Hospitalist Progress Note ---
Subjective Progress Notes Subjective The patient denies cp. She did vomiting during the colonoscopy and might have aspirated. She is on a higher O2 amount than baseline. She denies worsening SOB than baseline. Physical Exam Vital Signs Date Time Temp Pulse Resp B/P (MAP) Pulse Ox O2 Delivery O2 Flow Rate FiO2 08/29/17 11:28 91 20 93 08/29/17 11:28 97.9 87/53 (64) Nasal Cannula 5.0 Intake and Output 08/30/17 07:00 Intake Total 1500 ml Balance 1500 ml IV Total 1500 ml # Voids 1 General Appearance: Alert, Awake, No Acute Distress Respiratory: Clear to Auscultation Result Diagram: 08/29/1762308/29/17 06 Assessment and Plan Problems: (1) GI bleed Status: Acute Assessment & Plan: As per Dr. Torres. It sounds like she may have diverticular bleeding, per the colonoscopy report, but no current active bleeding.. Will hold her aspirin and Plavix for now. May need to consider restarting in near future if possible. Will discuss with Dr. Torres. (2) Aspiration into airway Status: Acute Assessment & Plan: She had a vomiting event with the colonoscopy today. She is on about 5 liters of O2 currently, but was requiring 10 liters in PACU. No fevers. She reports that she is at her baseline work of breathing. Will hold off on antibiotics unless she becomes symptomatic. (3) Stroke Status: Chronic Assessment & Plan: She has been managed with aspirin, Plavix, statin. Holding her antiplatelet therapy for now and continue statin. On telemetry while she is here to see if she has any dysrhythmias. (4) Pulmonary fibrosis Status: Chronic Assessment & Plan: She is on chronic oxygen therapy. Exam Sepsis Risk: No Definite Risk Problem Qualifiers (1) GI bleed: GI bleed type/associated pathology: diverticulosis Qualified Codes: K57.91 - Diverticulosis of intestine, part unspecified, without perforation or abscess with bleeding JORDAN MCGHEE MD Aug 29, 2017 14:28
[2017-08-30 04:39] VITALS: BP 125/91
[2017-08-30 06:36] LABS: PLATELET COUNT, AUTOMATED 155 K/uL (150-450)
[2017-08-30 07:44] VITALS: BP 115/70
[2017-08-30] MEDS ORDERED: FUROSEMIDE 20 MG TAB PO ONE (08:05)
--- NOTE | 2017-08-30 08:09 | Hospitalist Progress Note ---
Subjective Progress Notes Subjective No CP. Feeling more dyspneic this morning. Staff is reporting that she has had about 3 episodes of acute anxiety and disorientation after awakening. She denies having problems with that previously. Physical Exam Vital Signs Date Time Temp Pulse Resp B/P (MAP) Pulse Ox O2 Delivery O2 Flow Rate FiO2 08/30/17 04:39 98.5 92 28 125/91 (102) 92 Nasal Cannula 3.0 General Appearance: Alert, Awake, No Acute Distress Respiratory: Other (Bibasilar insp crackles) Result Diagram: 08/30/17 0608 08/30/17 06 Assessment and Plan Problems: (1) GI bleed Status: Acute Assessment & Plan: As per Dr. Torres. It sounds like she may have diverticular bleeding, per the colonoscopy report, but no current active bleeding.. Will hold her aspirin and Plavix for now. May need to consider restarting in near future if possible, but will defer to her PCP and Dr. Torres. (2) Aspiration into airway Status: Acute Assessment & Plan: She had a vomiting event with the colonoscopy yesterday. She is still requiring 3-5 liters of O2 and feels more dyspneic this morning. CXR cannot r/o infilrates bilaterally. WBC increased. Will start Augmentin and give a dose of Lasix for concern of volume overload. (3) Stroke Status: Chronic Assessment & Plan: She has been managed with aspirin, Plavix, statin. Holding her antiplatelet therapy for now and continue statin. On telemetry while she is here to see if she has any dysrhythmias. (4) Pulmonary fibrosis Status: Chronic Assessment & Plan: She is on chronic oxygen therapy. Exam Sepsis Risk: No Definite Risk Problem Qualifiers (1) GI bleed: GI bleed type/associated pathology: diverticulosis Qualified Codes: K57.91 - Diverticulosis of intestine, part unspecified, without perforation or abscess with bleeding JORDAN MCGHEE MD Aug 30, 2017 08:09
[2017-08-30] MEDS ORDERED: ALBUTEROL/IPRATROPIUM 3 ML NEB NEB PRN (08:15)
[2017-08-30] MEDS ORDERED: ALBUTEROL/IPRATROPIUM 3 ML NEB NEB ONE (08:15)
--- NOTE | 2017-08-30 08:18 | General Surgery Progress Note ---
Subjective Progress Notes Subjective No complaints this morning. No SOB. Having some wheezing. No further blood per rectum. Physical Exam Vital Signs Date Time Temp Pulse Resp B/P (MAP) Pulse Ox O2 Delivery O2 Flow Rate FiO2 08/30/17 04:39 98.5 92 28 125/91 (102) 92 Nasal Cannula 3.0 General Appearance: Alert, Awake, No Acute Distress, Afebrile GI: Soft and Non-Tender Extremities: Warm, Perfused Result Diagram: 08/30/17 0608 08/30/17 0608 Assessment and Plan Problems: (1) GI (gastrointestinal bleed) Status: Acute Assessment & Plan: 08/28/17: Blood per rectum is bright red without significant volumes c/w distal GI bleed from colon or rectum. Suspect diverticular bleed from sigmoid colon based on CT scan. She is admitted and will follow her H/H and vital signs. She has been very stable and her Hb dropped from 13 to 12 so will need to follow this but not a huge drop so far. She is completing a bowel prep and so she is on clear diet but will make her NPO at midnight and plan on colonoscopy in the morning. I have explained this plan with her in great detail and I have explained colonoscopy in great detail as well as the alternatives and risks. She seem to understand this discussion and the plan she is agreeable with proceeding with this plan including colonoscopy. Will avoid blood thinners and antiplatelet medications. Will need to restart at least ASA and possible plavix in a week or two. Risks of recurrent CVA explained to her without antiplatelet therapy but I've explained that her more immediate threat is her GI hemorrhage. She seems to understand this and is in agreement to hold all blood thinners/antiplatelet medications until it is clear her GI bleeding has stopped. Will ask Hospitalist to consult to help manage her chronic comorbidities. 08/29/17: Doing well. H/H down a little but could be hemodilution. Will proceed with colonoscopy this morning. Pt and daughter agreeable with this plan. 08/30/17: Doing well. H/H down a little bit this morning and WBC up a little. Pt vomited during procedure yesterday, possibility of aspiration exists. Will start augmentin today. Hospitalist giving her some lasix and potassium. Will use duoneb treatments for wheezing. Will keep her in the hospital today to follow her H/H and her respiratory status. Hopeful for d/c to home tomorrow on total of 7 day course of augmentin. (2) Aspiration into respiratory tract Status: Acute Assessment & Plan: Stacie, izzy, follow clinically. Condition Stable. Time Spent: < 30 min Exam Sepsis Risk: No Definite Risk Problem Qualifiers (1) GI (gastrointestinal bleed): GI bleed type/associated pathology: unspecified gastrointestinal hemorrhage type Qualified Codes: K92.2 - Gastrointestinal hemorrhage, unspecified (2) Aspiration into respiratory tract: Encounter type: subsequent encounter Qualified Codes: T17.908D - Unspecified foreign body in respiratory tract, part unspecified causing other injury, subsequent encounter KARLA BAJWA MD Aug 30, 2017 08:18
--- NOTE | 2017-08-30 08:18 | RADIOLOGY IMAGING REPORT ---
FACILITY: [facility] PATIENT NAME: Tracy Clinton : 1930 MR: [id number] V: [id number] EXAM DATE: ORDERING PHYSICIAN: KARLA BAJWA TECHNOLOGIST: Location: [facility] [place] Patient: Tracy Clinton : 1930 Visit/Account:[id number] Date of Sevice: 08/30/2017 EXAMINATION: Chest radiograph HISTORY: Short of breath COMPARISON: August 14, 2017 FINDINGS: The cardiac silhouette is normal in size. No pneumothorax. Suggestion of underlying emphysema. Bilate ral peripheral diffuse groundglass opacification has increased on both sides. Additional new mild roxanna ateral central patchy groundglass opacification. No acute osseous abnormality. IMPRESSION: Findings favored to represent new mild to moderate pulmonary edema. An atypical infectious process smith ch as a viral pneumonia or mycoplasma pneumonia is an alternative consideration. These findings may be superimposed on chronic pulmonary fibrosis. Report Dictated By: Kyle García MD at 08/30/2017 8:13 AM Report E-Signed By: Kyle García MD at 08/30/2017 8:15 AM WSN:[id number]
[2017-08-30] MEDS: AMOX/CLAV 875 MG TAB PO SCH ×2 (09:32→17:15)
[2017-08-30] MEDS: ATORVASTATIN 10 MG TAB PO SCH (09:32)
[2017-08-30] MEDS: POTASSIUM CHL 10 MEQ TABCR PO SCH ×2 (09:32→17:15)
[2017-08-30] MEDS: LETROZOLE 2.5 MG TAB PO SCH (09:32)
[2017-08-30 16:02] VITALS: BP 116/51
[2017-08-30 20:21] VITALS: BP 104/55
[2017-08-30] MEDS ORDERED: ALBUTEROL 2.5 MG/3 ML NEB NEB PRN (20:35)
[2017-08-31] VITALS (7 sets, daily range): BP systolic 94–122; BP diastolic 46–84
[2017-08-31] MEDS: ALBUTEROL/IPRATROPIUM 3 ML NEB NEB SCH ×4 (00:16→16:53)
--- NOTE | 2017-08-31 05:40 | RADIOLOGY IMAGING REPORT ---
FACILITY: [facility] - [place] PATIENT NAME: Tracy Clinton : 1930 MR: [id number] V: [id number] EXAM DATE: ORDERING PHYSICIAN: KARLA BAJWA TECHNOLOGIST: Location: [facility] Patient: Tracy Clinton : 1930 Visit/Account:[id number] Date of Sevice: 08/31/2017 PORTABLE CHEST: Indication: Dyspnea. Technique: A single frontal film was obtained. Comparison: 08/30/2017 Skeletal and soft tissue structures: Intact and unchanged. Heart and mediastinum: Stable. Lung taylor: Focal consolidation is now observed in the left upper lobe, compatible with pneumonia. T he background pattern of diffuse interstitial opacities is unchanged. Pleural spaces: No evidence of pneumothorax or significant effusion. Impression: New left upper lobe consolidation, compatible with pneumonia. Report Dictated By: Stefano Qureshi MD at 08/31/2017 5:35 AM Report E-Signed By: Stefano Qureshi MD at 08/31/2017 5:38 AM WSN:[id number]
[2017-08-31 06:08] LABS: PLATELET COUNT, AUTOMATED 172 K/uL (150-450)
[2017-08-31] MEDS: ATORVASTATIN 10 MG TAB PO SCH (08:19)
[2017-08-31] MEDS: POTASSIUM CHL 10 MEQ TABCR PO SCH (08:19)
[2017-08-31] MEDS: LETROZOLE 2.5 MG TAB PO SCH (08:19)
[2017-08-31] MEDS: AMOX/CLAV 875 MG TAB PO SCH ×2 (08:19→16:30)
--- NOTE | 2017-08-31 10:03 | General Surgery Progress Note ---
Subjective Progress Notes Subjective Patient has no complaints this morning. No shortness of breath. No further blood in her stools. She would like to go home. Physical Exam Vital Signs Date Time Temp Pulse Resp B/P (MAP) Pulse Ox O2 Delivery O2 Flow Rate FiO2 08/31/17 08:03 98.9 91 30 98/63 (75) 94 High-Flow Nasal Cannula 5.0 Intake and Output 09/01/17 07:00 Intake Total 120 ml Balance 120 ml Intake Oral 120 ml # Voids 1 General Appearance: Alert, Awake, No Acute Distress, Afebrile GI: Soft and Non-Tender Extremities: Warm, Perfused Result Diagram: 08/31/17 0545 08/31/17 0520 Assessment and Plan Problems: (1) GI (gastrointestinal bleed) Status: Acute Assessment & Plan: 08/28/17: Blood per rectum is bright red without significant volumes c/w distal GI bleed from colon or rectum. Suspect diverticular bleed from sigmoid colon based on CT scan. She is admitted and will follow her H/H and vital signs. She has been very stable and her Hb dropped from 13 to 12 so will need to follow this but not a huge drop so far. She is completing a bowel prep and so she is on clear diet but will make her NPO at midnight and plan on colonoscopy in the morning. I have explained this plan with her in great detail and I have explained colonoscopy in great detail as well as the alternatives and risks. She seem to understand this discussion and the plan she is agreeable with proceeding with this plan including colonoscopy. Will avoid blood thinners and antiplatelet medications. Will need to restart at least ASA and possible plavix in a week or two. Risks of recurrent CVA explained to her without antiplatelet therapy but I've explained that her more immediate threat is her GI hemorrhage. She seems to understand this and is in agreement to hold all blood thinners/antiplatelet medications until it is clear her GI bleeding has stopped. Will ask Hospitalist to consult to help manage her chronic comorbidities. 08/29/17: Doing well. H/H down a little but could be hemodilution. Will proceed with colonoscopy this morning. Pt and daughter agreeable with this plan. 08/30/17: Doing well. H/H down a little bit this morning and WBC up a little. Pt vomited during procedure yesterday, possibility of aspiration exists. Will start augmentin today. Hospitalist giving her some lasix and potassium. Will use duoneb treatments for wheezing. Will keep her in the hospital today to follow her H/H and her respiratory status. Hopeful for d/c to home tomorrow on total of 7 day course of augmentin. 08/31/17: Patient is doing well. H&H is stable. She does have what looks to be an infiltrate in her left upper lobe consistent with pneumonia. She is on Augmentin for this. She has not had fevers more than 99F. Her breathing seems to be better this morning. She was wheezing yesterday and is not today. I had a long conversation with her granddaughter who is at the bedside as well as her son and [id number] via telephone who are in [place] last evening. They are very concerned about her going home as they are frayed that she is going to come right back in. I will have case management evaluated the patient and discuss her situation with the patient and her family. We will otherwise continue the antibiotics today and depending on the findings of case management she can potentially home tomorrow. Of note, she already has home health nursing coming to her house 3 times a week. (2) Aspiration into respiratory tract Status: Acute Assessment & Plan: Augmentin, duonebs, follow clinically. Condition Stable Time Spent: < 30 min Exam Sepsis Risk: No Definite Risk Problem Qualifiers (1) GI (gastrointestinal bleed): GI bleed type/associated pathology: unspecified gastrointestinal hemorrhage type Qualified Codes: K92.2 - Gastrointestinal hemorrhage, unspecified (2) Aspiration into respiratory tract: Encounter type: subsequent encounter Qualified Codes: T17.908D - Unspecified foreign body in respiratory tract, part unspecified causing other injury, subsequent encounter KARLA BAJWA MD Aug 31, 2017 10:03
[2017-08-31] MEDS: predniSONE 20 MG TAB PO SCH (10:06)
--- NOTE | 2017-08-31 10:27 | Hospitalist Progress Note ---
Subjective Progress Notes Subjective This patient was admitted for GI bleeding. She had no acute events overnight. Patient Complains of: Cardiovascular: No: Chest Pain Respiratory: Cough Physical Exam Vital Signs Date Time Temp Pulse Resp B/P (MAP) Pulse Ox O2 Delivery O2 Flow Rate FiO2 08/31/17 08:03 98.9 91 30 98/63 (75) 94 High-Flow Nasal Cannula 5.0 Intake and Output 09/01/17 07:00 Intake Total 120 ml Balance 120 ml Intake Oral 120 ml # Voids 1 Cardiovascular: Regular Rate and Rhythm Respiratory: Other (Bilateral rhonchi.) Result Diagram: 08/31/17 0545 08/31/17 05 Assessment and Plan Problems: (1) GI bleed Status: Acute Assessment & Plan: This is being managed by Dr. Torres. (2) Stroke Status: Chronic Assessment & Plan: She is on chronic treatment with aspirin and Plavix. Both medications are currently on hold. (3) Pulmonary fibrosis Status: Chronic Assessment & Plan: She is on chronic oxygen therapy. (4) Aspiration pneumonia Assessment & Plan: It is reported that she aspirated at the time of her endoscopy. Her x-ray also shows an infiltrate in the left upper lung. She is on treatment with Augmentin. We have also added prednisone today. Exam Sepsis Risk: No Definite Risk Problem Qualifiers (1) GI bleed: GI bleed type/associated pathology: diverticulosis Qualified Codes: K57.91 - Diverticulosis of intestine, part unspecified, without perforation or abscess with bleeding KARLA ROBERTS DO Aug 31, 2017 10:27
[2017-08-31] MEDS ORDERED: MELATONIN 3 MG TAB PO PRN (20:00)
[2017-08-31] MEDS ORDERED: ACETAMINOPHEN 325 MG TAB PO PRN (21:20)
[2017-09-01] MEDS: ALBUTEROL/IPRATROPIUM 3 ML NEB NEB SCH ×4 (00:02→18:00)
[2017-09-01 05:08] VITALS: BP 108/74
[2017-09-01 06:31] LABS: PLATELET COUNT, AUTOMATED 191 K/uL (150-450)
[2017-09-01 07:16] VITALS: BP 121/78
[2017-09-01] MEDS: AMOX/CLAV 875 MG TAB PO SCH ×2 (07:27→16:44)
[2017-09-01] MEDS ORDERED: AMOX1TAB9 PO (08:42)
[2017-09-01] MEDS: ATORVASTATIN 10 MG TAB PO SCH (08:45)
[2017-09-01] MEDS: predniSONE 20 MG TAB PO SCH (08:45)
[2017-09-01] MEDS: LETROZOLE 2.5 MG TAB PO SCH (08:45)
--- NOTE | 2017-09-01 08:45 | Short(Outpt) Discharge Summary ---
Discharge Summary Reason for Hosp/Final Diag: (1) GI (gastrointestinal bleed) Status: Acute Hospital Course & Plan: 08/28/17: Blood per rectum is bright red without significant volumes c/w distal GI bleed from colon or rectum. Suspect diverticular bleed from sigmoid colon based on CT scan. She is admitted and will follow her H/H and vital signs. She has been very stable and her Hb dropped from 13 to 12 so will need to follow this but not a huge drop so far. She is completing a bowel prep and so she is on clear diet but will make her NPO at midnight and plan on colonoscopy in the morning. I have explained this plan with her in great detail and I have explained colonoscopy in great detail as well as the alternatives and risks. She seem to understand this discussion and the plan she is agreeable with proceeding with this plan including colonoscopy. Will avoid blood thinners and antiplatelet medications. Will need to restart at least ASA and possible plavix in a week or two. Risks of recurrent CVA explained to her without antiplatelet therapy but I've explained that her more immediate threat is her GI hemorrhage. She seems to understand this and is in agreement to hold all blood thinners/antiplatelet medications until it is clear her GI bleeding has stopped. Will ask Hospitalist to consult to help manage her chronic comorbidities. 08/29/17: Doing well. H/H down a little but could be hemodilution. Will proceed with colonoscopy this morning. Pt and daughter agreeable with this plan. 08/30/17: Doing well. H/H down a little bit this morning and WBC up a little. Pt vomited during procedure yesterday, possibility of aspiration exists. Will start augmentin today. Hospitalist giving her some lasix and potassium. Will use duoneb treatments for wheezing. Will keep her in the hospital today to follow her H/H and her respiratory status. Hopeful for d/c to home tomorrow on total of 7 day course of augmentin. 08/31/17: Patient is doing well. H&H is stable. She does have what looks to be an infiltrate in her left upper lobe consistent with pneumonia. She is on Augmentin for this. She has not had fevers more than 99F. Her breathing seems to be better this morning. She was wheezing yesterday and is not today. I had a long conversation with her granddaughter who is at the bedside as well as her son and [id number] via telephone who are in [place] last evening. They are very concerned about her going home as they are frayed that she is going to come right back in. I will have case management evaluated the patient and discuss her situation with the patient and her family. We will otherwise continue the antibiotics today and depending on the findings of case management she can potentially home tomorrow. Of note, she already has home health nursing coming to her house 3 times a week. 09/01/17: No further GI bleeding. H/H stable. Respiratory status is baseline. Will d/c to home with continued home health nursing today. Her son is coming to stay with her for a while. Will send her home with 1 week of augmentin. She should see Dr. Sol in the next week and he will restart her baby ASA but I recommend stopping Plavix. She can f/u with me if she has further GI issues or bleeding. (2) Aspiration into respiratory tract Status: Acute Hospital Course & Plan: izzy Quinones, follow clinically. Departure Discharge to: Home, Home Health Discharge Instructions Home Meds Active Scripts Amoxicillin/Potassium Clav (AMOX TR-K CLV 875-125 MG TAB) 1 Each Tablet, 1 TAB PO BIDBS, #14 TAB 0 Refills Prov:KARLA BAJWA MD 09/01/17 Letrozole (FEMARA) 2.5 Mg Tab, 1 TAB PO DAILY, #90 TAB 3 Refills Prov:DAISY SOL MD 07/22/17 Magnesium (MAGNESIUM) 200 Mg Tablet, 200 MG PO QDAY, #30 TAB Prov:DAISY SOL MD 08/27/15 Aspirin (ASPIR 81) 81 Mg Tablet.dr 81 MG PO QDAY, #30 TAB Prov:DAISY SOL MD 08/23/15 Cholecalciferol (Vitamin D3) (VITAMIN D3) 1,000 Unit Tablet, 1000 TAB PO DAILY, #100 TAB 4 Refills Prov:JESUS GARCIA MD 04/18/14 Reported Medications Clopidogrel Bisulfate (CLOPIDOGREL) 75 Mg Tablet, 1 TAB PO QDAY, TAB 08/28/17 Atorvastatin Calcium (LIPITOR) 10 Mg Tablet, 1 TAB PO QDAY, TAB 08/28/17 Oxygen (OXYGEN) Inha, 2 L INH, L 10/26/14 Discontinued Reported Medications Polyethylene Glycol 3350 (Glycolax) 17 Gram/Dose Powder 08/28/17 Oxygen (OXYGEN) Inha, 2 L INH, L 08/28/17 [magnesium] No Conflict Check 08/28/17 Letrozole (LETROZOLE) 2.5 Mg Tablet, 2.5 MG PO 08/28/17 Follow up Referrals: Internal Medicine - In One Week @ [facility] with Daisy Sol Md Diet: Regular Activity: As Tolerated Problem Qualifiers (1) GI (gastrointestinal bleed): GI bleed type/associated pathology: unspecified gastrointestinal hemorrhage type Qualified Codes: K92.2 - Gastrointestinal hemorrhage, unspecified (2) Aspiration into respiratory tract: Encounter type: subsequent encounter Qualified Codes: T17.908D - Unspecified foreign body in respiratory tract, part unspecified causing other injury, subsequent encounter KARLA BAJWA MD Sep 01, 2017 08:45
[2017-09-01 10:46] VITALS: BP 110/71
[2017-09-01] MEDS ORDERED: PRED20TA6 PO (11:44)
--- NOTE | 2017-09-01 11:44 | Hospitalist Progress Note ---
Subjective Progress Notes Subjective She reports improved work of breathing. Staff reports decreased O2 requirement. Physical Exam Vital Signs Date Time Temp Pulse Resp B/P (MAP) Pulse Ox O2 Delivery O2 Flow Rate FiO2 09/01/17 11:08 91 16 09/01/17 11:02 90 Nasal Cannula 3.0 09/01/17 10:46 98.5 110/71 (84) Intake and Output 09/02/17 07:00 Intake Total 990 ml Balance 990 ml Intake Oral 990 ml General Appearance: Alert, Awake, No Acute Distress Respiratory: Other (Exp wheeze with forced expiration. Bibasilar insp crackles.) Result Diagram: 09/01/17 0546 08/31/17 0520 Assessment and Plan Problems: (1) GI bleed Status: Acute Assessment & Plan: As per Dr. Torres. It sounds like she may have diverticular bleeding, per the colonoscopy report, but no current active bleeding. Will hold her aspirin and Plavix for now. May need to consider restarting in near future if possible, but will defer to her PCP and Dr. Torres. (2) Aspiration pneumonia Assessment & Plan: She had a vomiting event with the colonoscopy. She is still requiring 3 liters of O2 but was requiring more. CXR shows a new LESTER consolidation. On Augmentin and was started on prednisone. Will send home on a prednisone taper and Augmentin. (3) Stroke Status: Chronic Assessment & Plan: She is on chronic treatment with aspirin and Plavix. Both medications are currently on hold. Continue the statin. (4) Pulmonary fibrosis Status: Chronic Assessment & Plan: She is on chronic oxygen therapy. Copies to: DAISY BRANHAM MD Exam Sepsis Risk: No Definite Risk Problem Qualifiers (1) GI bleed: GI bleed type/associated pathology: diverticulosis Qualified Codes: K57.91 - Diverticulosis of intestine, part unspecified, without perforation or abscess with bleeding JORDAN MCGHEE MD Sep 01, 2017 11:44
[2017-09-01 15:44] VITALS: BP 109/77
[2017-09-03] MEDS ORDERED: ATOR10TA24 PO (15:03)
== END 2017-09-01 17:45 | disposition home health service (06) | DRG 377 ==
LOC: ER 07:06 → MED 09:48
PROVIDERS: ADMIT Surgery; ATTEND Surgery
PROC: 0DJD8ZZ Inspection of Lower Intestinal Tract, Via Natural or Artificial Opening Endoscopic (ICD-10-PCS; principal; 2017-08-29 09:00)
DX: K57.31 Diverticulosis of large intestine without perforation or abscess with bleeding (principal); J69.0 Pneumonitis due to inhalation of food and vomit; J95.88 Other intraoperative complications of respiratory system, not elsewhere classified; J84.10 Pulmonary fibrosis, unspecified; K92.1 Melena; K21.9 Gastro-esophageal reflux disease without esophagitis; M85.80 Other specified disorders of bone density and structure, unspecified site; I10 Essential (primary) hypertension; G50.0 Trigeminal neuralgia; T17.9 Foreign body in respiratory tract, part unspecified; Y65.8 Other specified misadventures during surgical and medical care; Y92.234 Operating room of hospital as the place of occurrence of the external cause; Y73.3 Surgical instruments, materials and gastroenterology and urology devices (including sutures) associated with adverse incidents; Z85.3 Personal history of malignant neoplasm of breast; Z86.73 Personal history of transient ischemic attack (TIA), and cerebral infarction without residual deficits; Z88.8 Allergy status to other drugs, medicaments and biological substances; Z90.11 Acquired absence of right breast and nipple; Z87.891 Personal history of nicotine dependence; Z90.49 Acquired absence of other specified parts of digestive tract; Z99.81 Dependence on supplemental oxygen
CPT/HCPCS: 36415; 71045; 74177; 81001; 82040; 82247; 82274; 82310; 82374; 82435; 82565; 82947; 83690; 84075; 84132; 84155; 84295; 84450; 84460; 84520; 85014; 85018; 85025; 85610; 85730; 86677; 86850; 86900; 86901; 86920; 93005; 94640; 96361; 96365; 99285; J2405; J2597; J2704; J7030; J7050; J7512; Q9967

== ENCOUNTER → 2017-09-09 | Outpatient (CLI) | payer MEDICARE, BC ==
[2017-08-29 11:54] VITALS: BMI 29.0
[~2017-09-09] MED LIST changes: +AMOX1TAB9 PO; +ATOR10TA24 PO; +CLOP75TA PO; +LETR2.5T4 PO; +POLY119P37; +PRED20TA6 PO; +magnesium
[2017-09-09 11:31] LABS: PLATELET COUNT, AUTOMATED 332 K/uL (150-450)
[2017-09-09 11:37] LABS: LDL CHOLESTEROL 52 mg/dl
== END ==
LOC: LAB 10:57
PROVIDERS: ATTEND Internal Medicine
DX: I63.9 Cerebral infarction, unspecified (principal); C50.919 Malignant neoplasm of unspecified site of unspecified female breast; K92.2 Gastrointestinal hemorrhage, unspecified; D64.9 Anemia, unspecified
CPT/HCPCS: 36415; 82040; 82247; 82310; 82374; 82435; 82465; 82565; 82607; 82728; 82746; 82947; 83540; 83550; 83718; 84075; 84132; 84155; 84295; 84443; 84450; 84460; 84478; 84520; 85025

== ENCOUNTER 2017-10-27 12:54 | Outpatient (RCR) | payer MEDICARE, BC ==
[2017-08-29 11:54] VITALS: BMI 29.0
[2017-10-29] MEDS ORDERED: ATOR10TA24 PO (16:05)
[2017-11-11] MEDS ORDERED: ASPI-1471 PO (10:40)
[2017-11-11] MEDS ORDERED: MAGN200T6 PO (10:40)
[2017-11-11] MEDS ORDERED: LETPT PO (10:40)
[2017-11-11] MEDS ORDERED: ATOR10TA24 PO (10:40)
[2017-11-11] MEDS ORDERED: CHOL10005 PO (10:40)
== END 2017-11-25 09:16 | disposition home or self-care (01) ==
LOC: RAON 12:54
PROVIDERS: ATTEND Radiology Radiation Oncology
DX: Z85.3 Personal history of malignant neoplasm of breast (principal); K21.9 Gastro-esophageal reflux disease without esophagitis; I10 Essential (primary) hypertension; Z92.3 Personal history of irradiation
CPT/HCPCS: 99212

== ENCOUNTER → 2017-12-03 | Outpatient (CLI) | payer MEDICARE, BC ==
[2017-08-29 11:54] VITALS: BMI 29.0
== END ==
LOC: RESP 19:29
PROVIDERS: ATTEND Internal Medicine Cardiovascular Disease
DX: G47.30 Sleep apnea, unspecified (principal); G47.36 Sleep related hypoventilation in conditions classified elsewhere; G47.61 Periodic limb movement disorder

== ENCOUNTER → 2018-02-01 | Outpatient (CLI) | payer MEDICARE, BC ==
[2017-08-29 11:54] VITALS: BMI 29.0
[~2018-02-01] MED LIST changes: -METR-160 PO; +METR500T54 PO
--- NOTE | 2018-02-01 14:02 | RADIOLOGY IMAGING REPORT ---
FACILITY: [facility] - [place] PATIENT NAME: Tracy Clinton : 1930 MR: [id number] V: [id number] EXAM DATE: ORDERING PHYSICIAN: ORLANDO العلي TECHNOLOGIST: Location: [facility] - [place] Patient: Tracy Clinton : 1930 Visit/Account:[id number] Date of Sevice: 02/01/2018 CT CHEST HIGH RES WO CONTRAST Indication: Interstitial lung disease Comparison: Chest x-ray 08/31/2017 TECHNIQUE: Noncontrast CT thoracic inlet through the adrenal glands obtained. Supine and prone image s were obtained. One of the following dose optimization techniques was utilized in the performance o f this exam: automated exposure control; adjustment of the mA and/or kV according to the patient's si ze; or use of an iterative reconstruction technique. Specific details can be referenced in the [facility]'s radiology CT exam operational policy. FINDINGS: Lungs: Centrilobular and paraseptal emphysematous changes are seen throughout both lungs, greatest a t the lung bases bilaterally. There is no focal airspace opacity or suspicious pulmonary nodule. On e xpiration images, no air trapping is identified. Mediastinum / jerome: Heart size is normal. Great vessels are unremarkable. Musculoskeletal / Body wall: Bones are unremarkable. Lower neck: Normal. Upper abdomen: There are postoperative changes from a cholecystectomy. Simple cyst is seen in the up per pole the right kidney. IMPRESSION: 1. Findings consistent with COPD and chronic interstitial lung disease. 2. No acute airspace opacity or pneumonia. Report Dictated By: Harley Rojas at 02/01/2018 1:53 PM Report E-Signed By: Harley Rojas at 02/01/2018 1:58 PM WSN:[id number]
== END ==
LOC: CT 03:31
PROVIDERS: ATTEND Internal Medicine
DX: J84.9 Interstitial pulmonary disease, unspecified (principal); J44.9 Chronic obstructive pulmonary disease, unspecified
CPT/HCPCS: 71250

== ENCOUNTER → 2018-02-12 | Outpatient (CLI) | payer MEDICARE, BC ==
[2017-08-29 11:54] VITALS: BMI 29.0
== END ==
LOC: RESP 02:05
PROVIDERS: ATTEND Internal Medicine
DX: J44.9 Chronic obstructive pulmonary disease, unspecified (principal)
CPT/HCPCS: 94060; 94726; 94729

== ENCOUNTER → 2018-04-21 | Outpatient (CLI) | payer MEDICARE, BC ==
[2017-08-29 11:54] VITALS: BMI 29.0
[~2018-04-21] MED LIST changes: +METR500T15 PO; -METR500T54 PO
== END ==
LOC: LAB 10:28
PROVIDERS: ATTEND Internal Medicine Cardiovascular Disease
DX: I65.29 Occlusion and stenosis of unspecified carotid artery (principal)
CPT/HCPCS: 36415; 82465; 83718; 84478

== ENCOUNTER → 2018-05-07 | Outpatient (CLI) | payer MEDICARE, BC ==
[2017-08-29 11:54] VITALS: BMI 29.0
--- NOTE | 2018-05-10 10:48 | RADIOLOGY IMAGING REPORT ---
FACILITY: [facility] - [place] PATIENT NAME: LULY WANG : [id number] MR: [id number] V: [id number] EXAM DATE: [id number] ORDERING PHYSICIAN: NGUYỄN COOLEY TECHNOLOGIST: Adriana Quintanilla PROCEDURE: MAMMOGRAM SCREENING LEFT UNILATERAL WITH CAD ASSISTED INTERPRETATION & 3D TOMOSYNTHESIS COMPARISON: Prior mammograms. INDICATIONS: SCREENING FINDINGS: Scattered fibroglandular densities are present in the Left breast. A few benign appearing calcifications are scattered in the Left breast. Multiple skin moles are scattered in the Left breast. DIAGNOSTIC CATEGORY 1--NEGATIVE. RECOMMENDATIONS: ROUTINE MAMMOGRAM AND CLINICAL EVALUATION. IMPRESSION: BIRADS 1: Negative. Dictated by: Dejuan Mcdonald M.D. on 05/07/2018 at 17:14 Transcribed by: BRO on 05/10/2018 at 8:42 Approved by: Evon Anna M.D. on 05/10/2018 at 10:47 [facility]
== END ==
LOC: MAMO 02:28
PROVIDERS: ATTEND Radiology Radiation Oncology
DX: Z12.31 Encounter for screening mammogram for malignant neoplasm of breast (principal); R92.1 Mammographic calcification found on diagnostic imaging of breast; I51.7 Cardiomegaly; I34.2 Nonrheumatic mitral (valve) stenosis; I34.1 Nonrheumatic mitral (valve) prolapse
CPT/HCPCS: 77063; 77067; 93306

== ENCOUNTER → 2018-05-07 | Outpatient (CLI) | payer MEDICARE, BC ==
[2017-08-29 11:54] VITALS: BMI 29.0
== END ==
LOC: US 02:29
PROVIDERS: ATTEND Internal Medicine Cardiovascular Disease
DX: Z02.9 Encounter for administrative examinations, unspecified (principal)

== ENCOUNTER 2018-05-11 11:00 | Outpatient (RCR) | payer MEDICARE, BC ==
[2017-08-29 11:54] VITALS: Wt 86.4 kg
[2018-05-11 11:25] VITALS: BP 108/70
--- NOTE | 2018-05-11 22:51 | ONCOLOGY FOLLOW UP NOTE ---
EVENT DATE: May 11, 2018 CHIEF COMPLAINT/REASON FOR VISIT Known history of high-risk breast carcinoma involving the right breast, treated with mastectomy and postoperative radiation therapy to chest wall and regional lymphatics 2012. Patient is here to review an updated mammogram on the left breast and clinical reevaluation. ONCOLOGY HISTORY 1. 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 Tumor was metastatic to three of 10 lymph nodes, ER/SD receptor positive, HER2 negative. 2. Patient received postoperative radiation therapy to the chest wall and regional lymphatics due to lymph node invasion. 3. Patient then completed Femara for five years. Medication was discontinued in 2018. INTERVAL HISTORY Patient was seen for a followup appointment today, clinically doing well. She states in July 2017, she had small CVA and some left-sided arm heaviness. MRI scan was performed, and there was no large event; however, there were some small vessel changes. Prior to this appointment, the patient had a mammogram on the left side, which I reviewed on the monitor and was completely negative. She denies any new bone pain, weight loss, headaches, or any suspicious abnormalities that she is aware of. PAST MEDICAL HISTORY 1. Right-sided breast carcinoma 2012. 2. Reflux. 3. Hypertension. 4. Previous CVA. SURGICAL HISTORY Right modified radical mastectomy 04/2012. ALLERGIES None. MEDICATIONS 1. Aspirin 81 mg a day. 2. Magnesium. 3. Vitamin D3. 4. Atorvastatin 10 mg a day. 5. Oxygen at 3L. SOCIAL HISTORY Patient is a retired elementary school band director. She is seen today with a friend. She lives alone. COMPREHENSIVE REVIEW OF SYSTEMS Notable for intermittent fatigue. She has occasional difficulty with concentrating and short-term memory loss, occasional difficulties with balance, mild shortness of breath with exertion, urinary urgency, diffuse muscle pain, occasional heartburn. PHYSICAL EXAMINATION GENERAL: Polly 88-year-old female, alert and fully cooperative. VITAL SIGNS: BP 108/70, weight 190, respirations 16, temperature 96. LUNGS: Clear bilaterally. HEART: Sounds regular. No audible murmur. CHEST: Right chest wall inspection reveals no signs of tumor recurrence. Multiple benign nevi are present. Left breast exam was benign. ABDOMEN: No gross organomegaly. NEUROLOGIC: Grossly intact. No motor weakness noted. IMPRESSION Polly 88-year-old female who is now six years remote from a stage II right- sided breast carcinoma. She responded quite well to multi-modality therapy. Surveillance mammogram of the left breast is negative today, as was the exam. PLAN Return to clinic at one year with an updated mammogram. Considering whether that will be the last one due to her age and life expectancy factors. She will follow up later this year with Dr. Sol for her medical needs. All questions were answered to her satisfaction today over a 40-minute followup visit. MACK
[2018-05-17] MEDS ORDERED: MAGN200T6 PO (16:01)
[2018-05-17] MEDS ORDERED: ASPI-1471 PO (16:01)
== END 2018-07-09 12:54 | disposition home or self-care (01) ==
LOC: RAON 11:00
PROVIDERS: ATTEND Radiology Radiation Oncology
DX: Z85.3 Personal history of malignant neoplasm of breast (principal); Z92.3 Personal history of irradiation
CPT/HCPCS: 99212

== ENCOUNTER → 2018-05-27 | Outpatient (CLI) | payer MEDICARE, BC ==
[2017-08-29 11:54] VITALS: BMI 29.0
--- NOTE | 2018-05-27 15:51 | RADIOLOGY IMAGING REPORT ---
FACILITY: [facility] - [place] PATIENT NAME: Tracy Clinton : 1930 MR: [id number] V: [id number] EXAM DATE: ORDERING PHYSICIAN: ORLANDO العلي TECHNOLOGIST: Location: [facility] - [place] Patient: Tracy Clinton : 1930 Visit/Account:[id number] Date of Sevice: 05/27/2018 CT CHEST W/O CONTRAST EXAMINATION: CT Thorax W/O Contrast HISTORY: Interstitial lung disease TECHNIQUE: High resolution CT chest protocol: A non-intravenous enhanced contiguous spiral scan was obtained through the chest. This was followed by inspiration and expiration 1 mm thick high-resolutio n axial images at 15 mm intervals, reconstructed using a high spatial resolution algorithm. High-reso lution prone imaging was also performed One of the following dose optimization techniques was utilized in the performance of this exam: Autom ated exposure control; adjustment of the mA and/or kV according to the patient's size; or use of an i terative reconstruction technique. Specific details can be referenced in the facility's radiology C T exam operational policy. COMPARISON STUDIES: 02/01/2018. FINDINGS: Chest survey: There is significant atherosclerotic calcification of the great vessels, thoracic aorta , mitral valve and aortic valve. Dense calcification of the origin of left subclavian artery is noted and may be stenotic but contrast was not given. Main pulmonary arteries enlarged measures 4 cm likely reflecting pulmonary arterial hypertension. There is a moderate-sized hiatal hernia. The upper abdomen demonstrates a 5.6 x 5 cm right renal cyst. Chest wall is notable for postoperative changes from right mastectomy. There are 2 cutaneous soft tis stephanie nodules along the left inferior breast/chest wall image 51 and 68 which are stable from prior exa mination and should be correlated with physical exam. High Resolution Inspiration images: Patient has a background of significant emphysema with superimpos ed interstitial lung disease. There is subpleural interstitial thickening with honeycombing worst at the lung bases. This is a possible UIP type pattern. High Resolution Expiration images: No significant airway gas trapping IMPRESSION: 1. Patient appears to have a significant background of emphysema with superimposed interstitial lung disease and a possible UIP type pattern. Overall no significant interval change from prior exam. 2. Enlarged main pulmonary artery measures 4 cm likely reflecting pulmonary arterial hypertension. 3. Significant atherosclerotic calcification particularly at the origin of the left subclavian artery . 4. Postoperative changes are noted from right mastectomy. 5. 2 skin lesions along left chest wall/inferior left breast stable from prior examinations and shoul d be correlated with physical examination. Report Dictated By: Saul Riddle MD at 05/27/2018 3:37 PM Report E-Signed By: Saul Riddle MD at 05/27/2018 3:48 PM WSN:[id number]
== END ==
LOC: CT 00:46
PROVIDERS: ATTEND Internal Medicine
DX: I27.20 Pulmonary hypertension, unspecified (principal); I25.10 Atherosclerotic heart disease of native coronary artery without angina pectoris; J84.9 Interstitial pulmonary disease, unspecified; Z98.890 Other specified postprocedural states
CPT/HCPCS: 36415; 71250; 86038

== ENCOUNTER → 2018-09-23 | Outpatient (CLI) | payer MEDICARE, BC ==
[2017-08-29 11:54] VITALS: BMI 29.0
[~2018-09-23] MED LIST changes: +ATOR20TA65 PO; +CYAN50002 SL; +FOLI-68 PO; +IPRA3AMP10 IH; +OMEP-126 PO
[2018-09-23 14:00] LABS: PLATELET COUNT, AUTOMATED 255 K/uL (150-450)
[2018-09-23 14:44] LABS: LDL CHOLESTEROL 61 mg/dl
== END ==
LOC: LAB 13:22
PROVIDERS: ATTEND Internal Medicine
DX: J44.9 Chronic obstructive pulmonary disease, unspecified (principal); K21.9 Gastro-esophageal reflux disease without esophagitis; K92.2 Gastrointestinal hemorrhage, unspecified; R25.2 Cramp and spasm; J84.10 Pulmonary fibrosis, unspecified; I63.9 Cerebral infarction, unspecified; D64.9 Anemia, unspecified
CPT/HCPCS: 36415; 81001; 82040; 82247; 82310; 82374; 82435; 82465; 82565; 82607; 82728; 82746; 82947; 83036; 83540; 83550; 83718; 83735; 84075; 84132; 84155; 84295; 84443; 84450; 84460; 84478; 84520; 85025